=== PATIENT | female | born 1960 ===

== ENCOUNTER → 2018-04-27 | Outpatient (CLI) | payer MEDICARE | LOC: WI 11:45 | PROVIDERS: ATTEND Physician Assistant | DX: Z12.31 Encounter for screening mammogram for malignant neoplasm of breast (principal) | CPT/HCPCS: 77063; 77067 ==

== ENCOUNTER → 2018-06-06 | Outpatient (CLI) | payer MEDICARE ==
--- NOTE | 2018-06-06 15:30 | WOMENS IMAGING REPORT ---
EXAM DESCRIPTION: U/S BREAST UNILAT LIMITED COMPLETED DATE/TIME: 06/06/2018 2:03 pm REASON FOR STUDY: RT BREAST NODULE N63.41; LT BREAST NODULE N63.42 N63.41 UNSPECIFIED LUMP IN RIGHT BREAST, SUBAREOLAR COMPARISON: Bilateral tomosynthesis 04/27/2018 TECHNIQUE: Real-time and static grayscale imaging performed of the right and left breast targeted to the area of mammographic concern. Selected color Doppler images recorded. LIMITATIONS: None. FINDINGS: MASS: No mass identified. Normal glandular tissue. OTHER: Multiple subcentimeter breast parenchymal cysts are present bilaterally in the central retroar eolar regions. These correlate with findings at mammography/tomosynthesis 04/27/2018. IMPRESSION: Benign bilateral breast parenchymal cysts. No worrisome findings BIRAD: 2 Benign findings. RECOMMENDATION: RECOMMENDED FOLLOW-UP: Please continue yearly bilateral screening mammography/ tomos ynthesis in April 2019 COMMENT: Patient notified by letter The [employer] ([employer]) has developed recommendations for screening MRI of the breast s in certain patient populations, to be used in conjunction with mammography. Breast MRI surveillanc e may be appropriate for women with more than 20% lifetime risk of developing breast cancer as deter mined by genetic testing, significant family history of the disease, or history of mantle radiation f or Hodgkins Disease. ACR Practice Guidelines 2007. TECHNICAL DOCUMENTATION: JOB ID: [id number] [email or web address]- All Rights Reserved Reading location - IP/workstation name: [email or web address]
--- NOTE | 2018-06-06 15:30 | WOMENS IMAGING REPORT ---
EXAM DESCRIPTION: U/S BREAST UNILAT LIMITED COMPLETED DATE/TIME: 06/06/2018 2:03 pm REASON FOR STUDY: RT BREAST NODULE N63.41; LT BREAST NODULE N63.42 N63.41 UNSPECIFIED LUMP IN RIGHT BREAST, SUBAREOLAR COMPARISON: Bilateral tomosynthesis 04/27/2018 TECHNIQUE: Real-time and static grayscale imaging performed of the right and left breast targeted to the area of mammographic concern. Selected color Doppler images recorded. LIMITATIONS: None. FINDINGS: MASS: No mass identified. Normal glandular tissue. OTHER: Multiple subcentimeter breast parenchymal cysts are present bilaterally in the central retroar eolar regions. These correlate with findings at mammography/tomosynthesis 04/27/2018. IMPRESSION: Benign bilateral breast parenchymal cysts. No worrisome findings BIRAD: 2 Benign findings. RECOMMENDATION: RECOMMENDED FOLLOW-UP: Please continue yearly bilateral screening mammography/ tomos ynthesis in April 2019 COMMENT: Patient notified by letter [employer] ([employer]) has developed recommendations for screening MRI of the breast s in certain patient populations, to be used in conjunction with mammography. Breast MRI surveillanc e may be appropriate for women with more than 20% lifetime risk of developing breast cancer as deter mined by genetic testing, significant family history of the disease, or history of mantle radiation f or Hodgkins Disease. ACR Practice Guidelines 2007. TECHNICAL DOCUMENTATION: JOB ID: [id number] [employer]- All Rights Reserved Reading location - IP/workstation name: [email or web address]
== END ==
LOC: WI 14:16
PROVIDERS: ATTEND Physician Assistant
DX: N60.01 Solitary cyst of right breast (principal); N60.02 Solitary cyst of left breast
CPT/HCPCS: 76642